=== PATIENT | male | born 1970 | race African-American/Black ===

== ENCOUNTER 2017-06-06 11:46 | Emergency (ER) | payer MEDICAID ==
[~2017-06-06] VITALS: Ht 172.7 cm; Wt 92.0 kg
[~2017-06-06 11:46] MED LIST: KEPPRA; UNKNOWN HTN MED
[2017-06-06] MEDS ORDERED: KETOROLAC 60MG/2ML VIAL IM ONE (12:45)
[2017-06-06 12:54] VITALS: BP 129/87
== END 2017-06-06 14:05 | disposition home or self-care (01) ==
LOC: ER 13:19
DX: S90.32XA Contusion of left foot, initial encounter (principal); I10 Essential (primary) hypertension; G40.909 Epilepsy, unspecified, not intractable, without status epilepticus; F17.210 Nicotine dependence, cigarettes, uncomplicated; F12.10 Cannabis abuse, uncomplicated; Z89.611 Acquired absence of right leg above knee; Z86.73 Personal history of transient ischemic attack (TIA), and cerebral infarction without residual deficits; Z88.0 Allergy status to penicillin; Z91.041 Radiographic dye allergy status; X58.XXXA Exposure to other specified factors, initial encounter; Y93.89 Activity, other specified; Y92.018 Other place in single-family (private) house as the place of occurrence of the external cause
CPT/HCPCS: 73630; 96372; 99284; J1885

== ENCOUNTER 2017-09-15 10:00 | Emergency (ER) | payer MEDICAID ==
[~2017-09-15] VITALS: Ht 172.7 cm; Wt 96.2 kg
[2017-09-15 10:58] VITALS: BP 123/74
== END 2017-09-15 13:41 | disposition left against medical advice (07) ==
LOC: ER 13:31
DX: M54.2 Cervicalgia (principal); Z53.21 Procedure and treatment not carried out due to patient leaving prior to being seen by health care provider

== ENCOUNTER 2018-03-05 08:07 | Emergency (ER) | payer MEDICAID ==
[~2018-03-05] VITALS: Ht 172.7 cm; Wt 90.0 kg
[2018-03-05] MEDS ORDERED: OXYCODONE HCL/ACETAMINOPHEN 5/325MG TABLET PO ONE (10:30)
[2018-03-05 11:27] VITALS: BP 122/80
== END 2018-03-05 12:35 | disposition home or self-care (01) ==
LOC: ER 08:07
DX: S52.041A Displaced fracture of coronoid process of right ulna, initial encounter for closed fracture (principal); W01.0XXA Fall on same level from slipping, tripping and stumbling without subsequent striking against object, initial encounter; Y93.89 Activity, other specified; Y92.89 Other specified places as the place of occurrence of the external cause; Z89.611 Acquired absence of right leg above knee; Z99.3 Dependence on wheelchair; F14.10 Cocaine abuse, uncomplicated; F12.10 Cannabis abuse, uncomplicated; I10 Essential (primary) hypertension; G40.909 Epilepsy, unspecified, not intractable, without status epilepticus; Z86.73 Personal history of transient ischemic attack (TIA), and cerebral infarction without residual deficits; Z87.828 Personal history of other (healed) physical injury and trauma
CPT/HCPCS: 73070; 93005; 99284; J7030; Z7610; A4565

== ENCOUNTER 2018-06-23 11:33 | Emergency (ER) | payer MEDICAID ==
[~2018-06-23] VITALS: Ht 172.7 cm; Wt 90.9 kg
[2018-06-23] MEDS ORDERED: ACETAMINOPHEN 325MG TABLET PO ONE (13:00)
[2018-06-23 13:19] LABS: CLARITY URINE CLOUDY (CLEAR); COLOR URINE YELLOW (YELLOW); KETONES URINE NEGATIVE (NEGATIVE); LEUKOCYTE ESTERASE URINE 3+ (NEGATIVE); NITRITE URINE NEGATIVE (NEGATIVE); OCCULT BLOOD URINE 2+ (NEGATIVE); PROTEIN URINE NEGATIVE (NEGATIVE); SPECIFIC GRAVITY URINE 1.015 (1.005-1.030); UROBILINOGEN URINE 0.2 E.U./dL (0.2-1.0)
[2018-06-23 14:04] VITALS: BP 125/77
[2018-06-25 04:15] LABS: CHLAMYDIA TRACHOMATIS NAA Negative (Negative); NEISSERIA GONORRHOEAE NAA Negative (Negative)
== END 2018-06-23 14:10 | disposition home or self-care (01) ==
LOC: ER 11:33
DX: N39.0 Urinary tract infection, site not specified (principal); I10 Essential (primary) hypertension; R56.9 Unspecified convulsions; F17.200 Nicotine dependence, unspecified, uncomplicated; Z86.73 Personal history of transient ischemic attack (TIA), and cerebral infarction without residual deficits; Z89.611 Acquired absence of right leg above knee; Z98.890 Other specified postprocedural states; Z91.041 Radiographic dye allergy status
CPT/HCPCS: 87070; 87077; 87430; 87491; 87591; 99283

== ENCOUNTER 2021-08-30 15:23 | Emergency (ER) | payer MEDICAID ==
[~2021-08-30] VITALS: Ht 170.2 cm; Wt 82.0 kg
[2021-08-30 16:30] VITALS: BP 145/98
[2021-08-30] MEDS ORDERED: LEVETIRACETAM 1000MG PREMIX 100 ML IV ONE (16:30)
== END 2021-08-30 18:37 | disposition left against medical advice (07) ==
LOC: ER 15:23
DX: G40.909 Epilepsy, unspecified, not intractable, without status epilepticus (principal); Z91.14 Patient's other noncompliance with medication regimen; R00.0 Tachycardia, unspecified; V23.4XXA Motorcycle driver injured in collision with car, pick-up truck or van in traffic accident, initial encounter; Y93.89 Activity, other specified; Y92.488 Other paved roadways as the place of occurrence of the external cause; Z91.041 Radiographic dye allergy status; Z88.0 Allergy status to penicillin
CPT/HCPCS: 99283